=== PATIENT | male | born 1945 | race Caucasian/White ===

== ENCOUNTER 2018-07-31 08:27 | Day surgery (SDC) | payer MEDICARE, BC, SELFPAY ==
--- NOTE | 2018-07-30 10:00 | POEE_ITS ---
History of Present Illness Chief Complaint: Progressive decreased vision, right eye Narrative: The patient is a 72-year-old male with history of epiretinal membrane and macular degeneration who presented with complaints of progressive decreased vision in both eyes at both distance and near. On examination he was noted to have significant nuclear cataract of the right eye worse than the left with best corrected vision of 20/50. The option of cataract surgery was offered to the patient and he felt he was symptomatic enough that he wished to proceed. He understands that postoperative visual acuity will be limited by the presence of pre-existing maculopathy. NOTE: The Chief Complaint, HPI, Past Medical History, Past Surgical History, Family History, Social History, Medications, and complete Ophthalmic Exam with detailed Assessment and Plan have already been documented in the patient's outpatient ophthalmic record and are not covered again in detail here. PFSH Medical History Hyperlipemia (Acute) Hyperparathyroidism (Acute) Polycystic kidney (Acute) Tremor (Acute) BPH (benign prostatic hyperplasia) (Chronic) CVA (cerebral vascular accident) (Chronic) Cataract (Chronic) GERD (gastroesophageal reflux disease) (Chronic) HTN (hypertension) (Chronic) Surgical History Status post tendon repair (Acute) History of colonoscopy (Chronic) Family History Other CHF (congestive heart failure) Social History Smoking/Tobacco Use Status: Never Alcohol Intake: current Alcohol Intake frequency: other Alcohol type: beer, wine and hard liquor Details: reports maybe a drink every couple months Do you feel safe at home: Yes Additional Social history: Meds Home Medications Medication Instructions Recorded Confirmed Type aspirin 81 mg PO DAILY 07/26/18 07/26/18 History cholecalciferol (vitamin D3) 2,000 unit PO DAILY 07/26/18 07/26/18 History [Vitamin D3] lovastatin 20 mg PO QPM 07/26/18 07/26/18 History metoprolol tartrate 12.5 mg PO BID 07/26/18 07/26/18 History cshdimomwthg-litwekdu-vvwycc 1 tab PO DAILY 07/26/18 07/26/18 History qe8-deo-ipg-A9-gsjabt-mdxlkcsm 1 cap PO DAILY 07/26/18 07/26/18 History [Eye [place] Advantage] pantoprazole 40 mg PO BID 07/26/18 07/26/18 History Allergies Allergy/AdvReac Type Severity Reaction Status Date / Time No Known Allergies Allergy Unverified 07/26/18 13:05 Exam OCULAR EXAM:: Most recent ocular examination is significant for best corrected vision of 20/50 OD, 20/30 OS. Intraocular pressure is 15 OD, 14 OS. Extraocular motility is normal. Slit-lamp examination shows pupils dilating to 5 mm OU. 3+ yellow white nuclear cataract OD with 2+ nuclear cataract OS. Funduscopic examination shows disc cupping of 0.5 OD 0.45 OS with normal vessels. There is an epiretinal membrane present in both eyes with a few macular drusen. Peripheral retina and vitreous is normal OU. BRIGHTNESS ACUITY TESTING (BAT):: Brightness acuity testing of the right eye off is 20/50. On low medium and high is 20/60. Assessment and Plan (1) Nuclear sclerotic cataract of right eye: Current visit: No Status: Acute Assessment: Visually significant cataract, right eye. Plan: Cataract extraction with intraocular lens implantation, right eye Note: NOTE:: The details of the planned surgery, including the risks, indications,limitations,expectations,outcome and possible complications were explained to the patient. The patient understands the complications including, but not limited to: infection, hemorrhage, posterior dislocation of the lens or nuclear fragments which may require the intervention of a vitreoretinal surgeon, possible loss of the eye, or from anesthetic complications. The patient has been made aware of the option of not having surgery, that vision following surgery may not be equal to that prior to surgery, and that the planned surgery may not achieve the intended results. Following this discussion, which the patient appeared to understand, the patient wishes to proceed with cataract surgery with lens implantation of the affected eye to improve and maximize vision.
[2018-07-31 08:49] VITALS: BP 149/100; PULSE 77; RESP 14; TEMP 36.4; O2SAT 97
[2018-07-31] MEDS: Tetracaine 0.5% 4 ML BTL OD ×4 (09:07→09:53)
[2018-07-31] MEDS: Tropicam./Phenyleph. (1/2.5%) 5 ML BTL OD ×3 (09:07→09:17)
--- NOTE | 2018-07-31 09:41 | W.PM.DSUDISC ---
Discharge Plan Disposition Patient Disposition: HOME Condition: Stable Discharge Details Attending Provider: Bull Dahl Primary Care Provider: Alexia Bonilla Home Meds and New Rx's Prescriptions: No Action metoprolol tartrate 50 mg Tablet 12.5 mg PO BID RF: 0 lovastatin 20 mg Tablet 20 mg PO QPM RF: 0 lvpztnbectus-rfgdncgg-owovhf Tablet 1 tab PO DAILY RF: 0 cholecalciferol (vitamin D3) [Vitamin D3] 2,000 unit Capsule 2,000 unit PO DAILY RF: 0 pantoprazole 40 mg Tablet,Delayed Release (Dr/Ec) 40 mg PO BID RF: 0 aspirin 81 mg Tablet,Chewable 81 mg PO DAILY RF: 0 Eye [place] Advantage 550-250-2.5-0.5 um-vbrg-fa-mg Capsule 1 cap PO DAILY RF: 0 Discharge Instructions Stand Alone Forms: Post-op Topical Cataract, Nusrat Bone (DSU) Discharge Orders Discharge Orders: Discharge Order (Routine); Ordered 07/31/18 Ordered By: Bull Dahl DS: Diagnosis Discharge Diagnosis (1) Nuclear sclerotic cataract of right eye: Status: Resolved (2) Status post cataract extraction and insertion of intraocular lens of right eye: Status: Chronic
[2018-07-31] MEDS: Lidocaine 2% Jelly 6 ML SYR (09:53)
[2018-07-31] MEDS: Povidone-Iodine Ophth 30 ML BTL (09:53)
[2018-07-31] MEDS: Lidocaine 1% Pres-Free 5 ML VIAL (10:00)
[2018-07-31] MEDS: Balanced Salt Soln.-PLUS 500 ML BAG (10:00)
[2018-07-31] MEDS: Trypan Blue 0.06% 0.5 ML SYR ×2 (10:08→10:30)
--- NOTE | 2018-07-31 10:36 | W.PM.OP ---
Date of service: 07/31/18 Time of Service: 10:36 Operative Note PRE-OP DIAGNOSIS: Cataract, right eye, with poor red reflex PROCEDURE: Cataract extraction using phacoemulsification with intraocular lens implantation, right eye, using capsular staining with Vision Blue SURGEON: Bull Dahl ANESTHESIA: MAC (with local sub-tenon's anesthetic injection) PATHOLOGY: none sent COMPLICATIONS: None Patient was transported to: same day Patient's condition: stable Implants: [employer] / [employer] Tecnis [id number] Indications: Progressive visual loss due to cataract, right eye Procedure Description: CATARACT SURGERY OPERATIVE REPORT PREOPERATIVE DIAGNOSIS: 1. Dense nuclear cataract, right eye, symptomatic 2. Poor red reflex secondary to #1 POSTOPERATIVE DIAGNOSIS: Same OPERATION: 1. Cataract extraction using phacoemulsification with posterior chamber intraocular lens implant, right eye. 2. Capsular staining with Vision Blue IOL: IOL Radio Rigger/Model: Dean & Dean / SAVANNA Tecnis [id number] IOL Power: + 19.50 diopters IOL Serial Number: [id number] Optic Diameter: 6.0mm Haptic/Overall Diameter: 13.0mm PHACO INFO: Eder Now In Storeurion Vision System with OZil and Active Fluidics Cumulative Dispersed Energy (CDE): 16.90 seconds SURGEON: Bull Dahl MD, KIM ANESTHESIA: Monitored Anesthesia Care (MAC), with local sub-tenon's anesthetic infiltration COMPLICATIONS: None SPECIMENS: None INDICATIONS FOR PROCEDURE: Patient is a 72-year-old gentleman with history of progressive decreased vision in his right eye. He is noted to have a dense yellow-white nuclear cataract with visual acuity of 20/50 best corrected. The option of cataract surgery was offered to the patient and he wished to proceed. PROCEDURE: The correct surgical eye was identified and marked as the right eye and the pupil was dilated in the preoperative area using mydriatics and cycloplegics. The dilated pupil size was 6.0 mm. Oral sedation was administered in the form of an Imprimis MKO Melt (midazolam 3mg/ketamine 25mg/ondansetron 2mg). The patient was brought to the operating room where cardiopulmonary monitoring was instituted and surgical time-out was performed, confirming the correct operative eye and IOL power. Topical anesthesia was administered and ophthalmic povidone-iodine 5% was instilled into the conjunctival fornices. Lidocaine gel was applied to the cornea and the luis-ocular area was prepped with Betadine 10% solution and draped in the usual sterile fashion for intraocular surgery, including an aperture drape. A Tegaderm transparent film dressing was cut in half and used to cover the lashes and lid margins. Care was taken to sequester the lashes and lid margins under the Tegaderm dressing. A lid speculum was placed between the lids of the operative eye and the Jasen-Batsheva operating microscope was maneuvered into position. Gerda scissors were then used to make a conjunctival buttonhole approximately 6mm posterior to the limbus in the inferonasal quadrant. Blunt dissection was carried out to expose bare sclera, and a blunt-tipped sub-tenon?s anesthesia cannula was introduced and passed posteriorly along the globe where non-preserved plain lidocaine was injected into posterior sub-Tenon?s space. A sideport knife was used to make a paracentesis port at the 7:00 position. Air was injected into the anterior chamber, followed by Vision Blue, which was painted over the anterior capsule and then irrigated out with BSS. The anterior chamber was filled with Healon GV. A 2.4mm keratome knife was used to create a half-thickness groove at the limbus and then to construct a three-plane near-clear corneal tunnel extending 2.0mm into clear cornea at the 10:00 position. A flap was raised on the anterior capsule and capsulorhexis forceps were used to complete a continuous curvilinear capsulorhexis of 4.8 mm. Capsule was noted to be extremely thin Balanced salt solution was then used to perform cortical cleaving hydrodissection and nuclear hydrodelineation until the lens could be freely rotated within the capsular bag. The lens nucleus was then disassembled and removed within the capsular bag and iris plane using phacoemulsification. Residual cortical material was removed using the I/A handpiece. The posterior capsule was carefully polished to remove as much residual lens epithelial cells as safely possible. There was some residual posterior subcapsular plaque superior nasally which could not be safely removed despite extensive polishing. The capsular bag was then inflated and the anterior chamber deepened with viscoelastic. The lens implant described above was inserted into the capsular bag using the SAVANNA [place] Injector. A Kuglen hook was used to dial the IOL into position. Residual viscoelastic was then removed first from posterior to the IOL, then from the anterior chamber using the I/A handpiece. The lens implant was noted to center nicely within the capsular bag. The incisions were stromally hydrated, and the anterior chamber was reformed using BSS. Then 0.4cc of moxifloxacin 1.5mg/ml were injected into the capsular bag and anterior chamber. The incisions were checked with a Weck spear and found to be secure. Several drops of ophthalmic povidone-iodine 5% were then applied to the eye followed by two drops of Imprimis combination gatifloxacin/dexamethasone solution. The drapes were removed and a clear plastic protective eye shield was placed over the eye. The patient was then returned to Same Day Surgery in stable condition.
--- NOTE | 2018-07-31 10:39 | ROE_ITS ---
Date of service: 07/31/18 Time of Service: 10:36 Operative Note PRE-OP DIAGNOSIS: Cataract, right eye, with poor red reflex PROCEDURE: Cataract extraction using phacoemulsification with intraocular lens implantation, right eye, using capsular staining with Vision Blue SURGEON: Bull Dahl ANESTHESIA: MAC (with local sub-tenon's anesthetic injection) PATHOLOGY: none sent COMPLICATIONS: None Patient was transported to: same day Patient's condition: stable Implants: [employer] Dean / [employer] Tecnis [id number] Indications: Progressive visual loss due to cataract, right eye Procedure Description: CATARACT SURGERY OPERATIVE REPORT PREOPERATIVE DIAGNOSIS: 1. Dense nuclear cataract, right eye, symptomatic 2. Poor red reflex secondary to #1 POSTOPERATIVE DIAGNOSIS: Same OPERATION: 1. Cataract extraction using phacoemulsification with posterior chamber intraocular lens implant, right eye. 2. Capsular staining with Vision Blue IOL: IOL Rn Medicare/Model: Dean & Dean / SAVANNA Tecnis [id number] IOL Power: + 19.50 diopters IOL Serial Number: [id number] Optic Diameter: 6.0mm Haptic/Overall Diameter: 13.0mm PHACO INFO: Eder [employer]urion Vision System with OZil and Active Fluidics Cumulative Dispersed Energy (CDE): 16.90 seconds SURGEON: Bull Dahl MD, KIM ANESTHESIA: Monitored Anesthesia Care (MAC), with local sub-tenon's anesthetic infiltration COMPLICATIONS: None SPECIMENS: None INDICATIONS FOR PROCEDURE: Patient is a 72-year-old gentleman with history of progressive decreased vision in his right eye. He is noted to have a dense yellow-white nuclear cataract with visual acuity of 20/50 best corrected. The option of cataract surgery was offered to the patient and he wished to proceed. PROCEDURE: The correct surgical eye was identified and marked as the right eye and the pupil was dilated in the preoperative area using mydriatics and cycloplegics. The dilated pupil size was 6.0 mm. Oral sedation was administered in the form of an Imprimis MKO Melt (midazolam 3mg/ketamine 25mg/ondansetron 2mg). The patient was brought to the operating room where cardiopulmonary monitoring was instituted and surgical time-out was performed, confirming the correct operative eye and IOL power. Topical anesthesia was administered and ophthalmic povidone-iodine 5% was instilled into the conjunctival fornices. Lidocaine gel was applied to the cornea and the luis-ocular area was prepped with Betadine 10% solution and draped in the usual sterile fashion for intraocular surgery, including an aperture drape. A Tegaderm transparent film dressing was cut in half and used to cover the lashes and lid margins. Care was taken to sequester the lashes and lid margins under the Tegaderm dressing. A lid speculum was placed between the lids of the operative eye and the Jasen-Batsheva operating microscope was maneuvered into position. Gerda scissors were then used to make a conjunctival buttonhole approximately 6mm posterior to the limbus in the inferonasal quadrant. Blunt dissection was carried out to expose bare sclera, and a blunt-tipped sub-tenon?s anesthesia cannula was introduced and passed posteriorly along the globe where non- preserved plain lidocaine was injected into posterior sub-Tenon?s space. A sideport knife was used to make a paracentesis port at the 7:00 position. Air was injected into the anterior chamber, followed by Vision Blue, which was painted over the anterior capsule and then irrigated out with BSS. The anterior chamber was filled with Healon GV. A 2.4mm keratome knife was used to create a half-thickness groove at the limbus and then to construct a three-plane near- clear corneal tunnel extending 2.0mm into clear cornea at the 10:00 position. A flap was raised on the anterior capsule and capsulorhexis forceps were used to complete a continuous curvilinear capsulorhexis of 4.8 mm. Capsule was noted to be extremely thin Balanced salt solution was then used to perform cortical cleaving hydrodissection and nuclear hydrodelineation until the lens could be freely rotated within the capsular bag. The lens nucleus was then disassembled and removed within the capsular bag and iris plane using phacoemulsification. Residual cortical material was removed using the I/A handpiece. The posterior capsule was carefully polished to remove as much residual lens epithelial cells as safely possible. There was some residual posterior subcapsular plaque superior nasally which could not be safely removed despite extensive polishing. The capsular bag was then inflated and the anterior chamber deepened with viscoelastic. The lens implant described above was inserted into the capsular bag using the SAVANNA [place] Injector. A Kuglen hook was used to dial the IOL into position. Residual viscoelastic was then removed first from posterior to the IOL, then from the anterior chamber using the I/A handpiece. The lens implant was noted to center nicely within the capsular bag. The incisions were stromally hydrated, and the anterior chamber was reformed using BSS. Then 0.4cc of moxifloxacin 1.5mg/ml were injected into the capsular bag and anterior chamber. The inc isions were checked with a Weck spear and found to be secure. Several drops of ophthalmic povidone-iodine 5% were then applied to the eye followed by two drops of Imprimis combination gatifloxacin/dexamethasone solution. The drapes were removed and a clear plastic protective eye shield was placed over the eye. The patient was then returned to Same Day Surgery in stable condition.
[2018-07-31 11:30] VITALS: BP 137/79; PULSE 71; RESP 16; TEMP 36.5; O2SAT 97
== END 2018-07-31 11:46 | disposition home or self-care (01) ==
PROVIDERS: PCP Nurse Practitioner; Visit Provider Ophthalmology
PROC: (CPT 66982; principal; 2018-07-31 10:30)
DX: H25.11 Age-related nuclear cataract, right eye (principal); H35.89 Other specified retinal disorders; I10 Essential (primary) hypertension; K21.9 Gastro-esophageal reflux disease without esophagitis
CPT/HCPCS: 66982; V2632

== ENCOUNTER 2018-08-14 07:44 | Day surgery (SDC) | payer MEDICARE, BC, SELFPAY ==
--- NOTE | 2018-08-13 18:28 | POEE_ITS ---
History of Present Illness Chief Complaint: Progressive decreased vision, left eye Narrative: The patient is a 72-year old male with history of epiretinal membrane and macular degeneration in both eyes who has developed significant bilateral nuclear cataracts, right eye greater than left. He noted progressive decreased vision in both eyes at both distance and near, right eye worse than left. He underwent cataract surgery in the right eye on 07/31/2018. Postoperatively he has regained uncorrected vision of 20/25 in the right eye. He now presents for cataract surgery in the left eye. NOTE: The Chief Complaint, HPI, Past Medical History, Past Surgical History, Family History, Social History, Medications, and complete Ophthalmic Exam with detailed Assessment and Plan have already been documented in the patient's outpatient ophthalmic record and are not covered again in detail here. PFSH Family History Other CHF (congestive heart failure) Social History Smoking/Tobacco Use Status: Never Alcohol Intake: current Alcohol Intake frequency: other Alcohol type: beer, win e and hard liquor Substance use type: does not use Details: reports maybe a drink every couple months Do you feel safe at home: Yes Do you feel safe in your relationship?: Yes Additional Social history: Meds Home Medications Medication Instructions Recorded Confirmed Type aspirin 81 mg PO DAILY 07/26/18 07/31/18 History cholecalciferol (vitamin D3) 2,000 unit PO DAILY 07/26/18 07/31/18 History [Vitamin D3] lovastatin 20 mg PO QPM 07/26/18 07/31/18 History metoprolol tartrate 12.5 mg PO BID 07/26/18 07/31/18 History dznyfuumydbr-jscjizdh-qkxypy 1 tab PO DAILY 07/26/18 07/31/18 History ck4-fle-ulk-C5-cdvsqf-jtmxusij 1 cap PO DAILY 07/26/18 07/31/18 History [Eye [place] Advantage] pantoprazole 40 mg PO BID 07/26/18 07/31/18 History Allergies Allergy/AdvReac Type Severity Reaction Status Date / Time No Known Allergies Allergy Unverified 07/31/18 09:01 Exam OCULAR EXAM:: Most recent ocular examination is significant for uncorrected vision of 20/25 OD, corrected vision of 20/30 OS. Intraocular pressure is 15 OD , 14 OS. Pupils equal, round, and reactive without afferent pupillary defect extraocular motility is normal. Slit-lamp examination is significant for pupils dilating to 5 mm OU. 2+ nuclear cataract OS. Well-positioned PCIOL OD with trace posterior capsular haze. Dilated funduscopic examination shows disc cupping of 0.5 OD, 0.45 OS. There are drusen in both maculas and an epiretinal membrane present in both macula's. Peripheral retina and vitreous is normal OU. BRIGHTNESS ACUITY TESTING (BAT):: Brightness acuity testing of the left eye offi ce is 20/30. Low is 20/30. Medium is 20/30. High is 20/40. Assessment and Plan (1) Nuclear sclerotic cataract of left eye: Current visit: No Status: Acute Assessment: Visually significant cataract, left eye. Plan: Cataract extraction with intraocular lens implantation, left eye Note: NOTE:: The details of the planned surgery, including the risks, indications,limitations,expectations,outcome and possible complications were explained to the patient. The patient understands the complications including, but not limited to: infection, hemorrhage, posterior dislocation of the lens or nuclear fragments which may require the intervention of a vitreoretinal surgeon, possible loss of the eye, or from anesthetic complications. The patient has been made aware of the option of not having surgery, that vision following surgery may not be equal to that prior to surgery, and that the planned surgery may not achieve the intended results. Following this discussion, which the patient appeared to understand, the patient wishes to proceed with cataract surgery with lens implantation of the affected eye to improve and maximize vision.
[2018-08-14 08:05] VITALS: BP 138/98; PULSE 72; RESP 16; TEMP 36.3; O2SAT 96
[2018-08-14] MEDS: Tetracaine 0.5% 4 ML BTL OS ×4 (08:16→09:26)
[2018-08-14] MEDS: Tropicam./Phenyleph. (1/2.5%) 5 ML BTL OS ×3 (08:16→08:27)
[2018-08-14 08:19] VITALS: BP 138/98; PULSE 72; RESP 16; TEMP 36.3; O2SAT 96
--- NOTE | 2018-08-14 09:14 | PDOC.DSDIS_ITS ---
Discharge Plan Disposition Patient Disposition: HOME Condition: Stable Discharge Details Attending Provider: Bull Dahl Primary Care Provider: Alexia Jara Home Meds and New Rx's Prescriptions: No Action metoprolol tartrate 50 mg Tablet 12.5 mg PO BID RF: 0 lovastatin 20 mg Tablet 20 mg PO QPM RF: 0 abcrunrynsqc-gkanfkmr-exxscf Tablet 1 tab PO DAILY RF: 0 cholecalciferol (vitamin D3) [Vitamin D3] 2,000 unit Capsule 2,000 unit PO DAILY RF: 0 pantoprazole 40 mg Tablet,Delayed Release (Dr/Ec) 40 mg PO BID RF: 0 aspirin 81 mg Tablet,Chewable 81 mg PO DAILY RF: 0 Eye [place] Advantage 550-250-2.5-0.5 fc-ikql-yj-mg Capsule 1 cap PO DAILY RF: 0 Discharge Instructions Stand Alone Forms: Post-op Topical Cataract, Nusrat Bone (DSU) Discharge Orders Discharge Orders: Discharge Order (Routine); Ordered 08/14/18 Ordered By: Bull Dahl DS: Diagnosis Discharge Diagnosis (1) Nuclear sclerotic cataract of left eye: Status: Resolved (2) Status post cataract extraction and insertion of intraocular lens of left eye: Status: Chronic
--- NOTE | 2018-08-14 09:14 | W.PM.OP ---
Date of service: 08/14/18 Time of Service: 10:05 Operative Note PRE-OP DIAGNOSIS: Cataract, left eye POST-OP DIAGNOSIS: same PROCEDURE: Cataract extraction using phacoemulsification with intraocular lens implant, left eye SURGEON: Bull Dahl ANESTHESIA: MAC and local (sub-tenon's anesthetic infiltration) PATHOLOGY: none sent COMPLICATIONS: None Patient was transported to: same day Patient's condition: stable Implants: [employer] / [employer]nis [id number] Indications: Progressive decreased vision due to cataract, left eye Procedure Description: CATARACT SURGERY OPERATIVE REPORT PREOPERATIVE DIAGNOSIS: Nuclear/posterior subcapsular cataract, left eye POSTOPERATIVE DIAGNOSIS: Same OPERATION: Cataract extraction using phacoemulsification with posterior chamber intraocular lens implant, left eye. 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: [employer] / SAVANNA [employer] [id number] IOL Power: + 20.50 diopters IOL Serial Number: [id number] Optic Diameter: 6.0mm Haptic/Overall Diameter: 13.0mm PHACO INFO: [employer] Vision System with OZil and [employer] Cumulative Dispersed Energy (CDE): 13.75 seconds SURGEON: Bull Dahl MD, KIM ANESTHESIA: Monitored Anesthesia Care (MAC), with local sub-tenon's anesthetic infiltration COMPLICATIONS: None SPECIMENS: None INDICATIONS FOR PROCEDURE: The patient is a 72-year-old gentleman with history of bilateral cataracts, as well as early macular degeneration and epiretinal membrane of both eyes. He has already undergone cataract surgery in his right eye and is doing well postoperatively. He now presents for cataract surgery in the left eye. PROCEDURE: The correct surgical eye was identified and marked as the left eye and the pupil was dilated in the preoperative area using mydriatics and cycloplegics. The dilated pupil size was 7.0 mm. Oral sedation was administered in the form of an Imprimis MKO Melt (midazolam 3mg/ketamine 25mg/ondansetron 2mg). The patient was brought to the operating room where cardiopulmonary monitoring was instituted and surgical time-out was performed, confirming the correct operative eye and IOL power. Topical anesthesia was administered and ophthalmic povidone-iodine 5% was instilled into the conjunctival fornices. Lidocaine gel was applied to the cornea and the luis-ocular area was prepped with Betadine 10% solution and draped in the usual sterile fashion for intraocular surgery, including an aperture drape. A Tegaderm transparent film dressing was cut in half and used to cover the lashes and lid margins. Care was taken to sequester the lashes and lid margins under the Tegaderm dressing. A lid speculum was placed between the lids of the operative eye and the Jasen-Batsheva operating microscope was maneuvered into position. Gerda scissors were then used to make a conjunctival buttonhole approximately 6mm posterior to the limbus in the inferonasal quadrant. Blunt dissection was carried out to expose bare sclera, and a blunt-tipped sub-tenon?s anesthesia cannula was introduced and passed posteriorly along the globe where non-preserved plain lidocaine was injected into posterior sub-Tenon?s space. A sideport knife was used to make a paracentesis port superior/superiortemporal, and the anterior chamber was filled with Healon GV. A 2.4mm keratome knife was used to create a half-thickness groove at the limbus and then to construct a three-plane near-clear corneal tunnel extending 2.0mm into clear cornea in the temporal position. . A flap was raised on the anterior capsule and capsulorhexis forceps were used to complete a continuous curvilinear capsulorhexis of 5.0 mm. Balanced salt solution was then used to perform cortical cleaving hydrodissection and nuclear hydrodelineation until the lens could be freely rotated within the capsular bag. The lens nucleus was then disassembled and removed within the capsular bag and iris plane using phacoemulsification. Residual cortical material was removed using the 45-degree angled silicone I/A tip with 0.3mm port. The posterior capsule was carefully polished to remove as much residual lens epithelial cells as safely possible. The capsular bag was then inflated and the anterior chamber deepened with viscoelastic. The lens implant described above was inserted into the capsular bag using the SAVANNA [place] Injector. A Kuglen hook was used to dial the IOL into position. Residual viscoelastic was then removed first from posterior to the IOL, then from the anterior chamber using the I/A handpiece. The lens implant was noted to center nicely within the capsular bag. The incisions were stromally hydrated, and the anterior chamber was reformed using BSS. Then 0.4cc of moxifloxacin 1.5mg/ml were injected into the capsular bag and anterior chamber. The incisions were checked with a Weck spear and found to be secure. Then, a 1 cc mixture containing Kenalog 20 mg in 0.5 cc, and moxifloxacin 2.5 mg in 0.5 cc was injected into posterior sub-tenon's space using the sub-tenon's injection cannula. Several drops of ophthalmic povidone-iodine 5% were then applied to the eye followed by two drops of Imprimis combination gatifloxacin/dexamethasone solution. The drapes were removed and a clear plastic protective eye shield was placed over the eye. The patient was then returned to [facility] in stable condition.
[2018-08-14] MEDS: Balanced Salt Soln.-PLUS 500 ML BAG (09:23)
[2018-08-14] MEDS: Lidocaine 1% Pres-Free 5 ML VIAL (09:23)
[2018-08-14] MEDS: Povidone-Iodine Ophth 30 ML BTL (09:26)
[2018-08-14] MEDS: Lidocaine 2% Jelly 6 ML SYR (09:26)
[2018-08-14] MEDS: Triamcinolone 40 MG/ML VIAL (09:53)
[2018-08-14 11:43] VITALS: BP 142/86; PULSE 66; RESP 16; TEMP 36.2; O2SAT 97
== END 2018-08-14 11:00 | disposition home or self-care (01) ==
PROVIDERS: PCP Nurse Practitioner; Visit Provider Ophthalmology
PROC: (CPT 66984; principal; 2018-08-14 09:30)
DX: H25.812 Combined forms of age-related cataract, left eye (principal); Z98.41 Cataract extraction status, right eye; Z96.1 Presence of intraocular lens; I10 Essential (primary) hypertension; K21.9 Gastro-esophageal reflux disease without esophagitis
CPT/HCPCS: 66984; V2632